=== PATIENT | male | born 1990 | race African-American/Black ===

== ENCOUNTER 2018-07-16 12:06 | Emergency (ER) | payer SELFPAY ==
[~2018-07-16] VITALS: Ht 180.3 cm; Wt 63.0 kg
[2018-07-16 12:09] VITALS: BP 133/71
[2018-07-16] MEDS ORDERED: AZITHROMYCIN 250 MG TABLET PO STA (12:21)
[2018-07-16] MEDS ORDERED: LIDOCAINE-MPF 1%, 2ML ONE (12:28)
[2018-07-16] MEDS ORDERED: AZITHROMYCIN 500 MG TABLET ONE (12:28)
[2018-07-16] MEDS ORDERED: CEFTRIAXONE 250 MG ONE (12:28)
[2018-07-16] MEDS ORDERED: CEFTRIAXONE 250 MG IM ONE (12:30)
[2018-07-16 12:54] LABS: MICROSCOPIC AUTO
[2018-07-16 12:57] LABS: CULTURE INDICATED? YES
== END 2018-07-16 13:31 | disposition home or self-care (01) ==
LOC: ED 13:15
DX: N34.2 Other urethritis (principal); F12.90 Cannabis use, unspecified, uncomplicated; Z86.19 Personal history of other infectious and parasitic diseases
CPT/HCPCS: 81001; 87086; 87491; 87591; 96372; 99283; J0696

== ENCOUNTER 2019-07-17 10:17 | Inpatient (IN) | payer MEDICAID ==
[~2019-07-17] VITALS: Ht 177.8 cm; Wt 59.4 kg
--- NOTE | 2019-07-17 10:37 | NUR ---
Assumed care of patient. C/O BOYER, cough, nasal congestion, nausea, and subjective fevers x 2 days[address] Placed on NIBP and pulse ox. Will continue to monitor.
[2019-07-17] MEDS ORDERED: ONDANSETRON 2MG/ML, 2ML ONE (11:28)
[2019-07-17] MEDS ORDERED: HYDROmorphone 1 MG/ML, 1ML VIAL ONE ×2 (11:28→13:43)
[2019-07-17] MEDS ORDERED: AMPICILLIN/SULBACTAM 3 GM in SODIUM CHLORIDE 0.9% 100 ML IV ONE (11:30)
[2019-07-17] MEDS ORDERED: SODIUM CHLORIDE FLUSH 10ML SYR IVF ONE (11:30)
[2019-07-17] MEDS ORDERED: ONDANSETRON 2MG/ML, 2ML IVPush ONE (11:30)
[2019-07-17 11:39] LABS: BASOPHILS # (AUTO) 0.01 x10^3/uL (0-0.1); BASOPHILS % (AUTO) 0 % (0-1); EOSINOPHILS # (AUTO) 0.04 x10^3/uL (0-0.4); EOSINOPHILS % (AUTO) 1 % (1-7); LYMPHOCYTES # (AUTO) 1.44 x10^3/uL (1-3.4); LYMPHOCYTES % (AUTO) 21 % (22-44); MD NO; MEAN CORPUSCULAR HEMOGLOBIN 27.8 pg (27.5-34.5); MEAN CORPUSCULAR HGB CONC 31.6 g/dL (33.2-36.2); MEAN CORPUSCULAR VOLUME 88.1 fL (81-97); MEAN PLATELET VOLUME 8.6 fL (7.4-10.4); MONOCYTES % (AUTO) 3 % (2-9); NEUTROPHILS # (AUTO) 5.26 x10^3/uL (1.8-6.8); NEUTROPHILS % (AUTO) 76 % (42-75); PLATELET COUNT 181 x10^3/uL (130-400); RED BLOOD COUNT 6.07 x10^6/uL (4.38-5.82); RED CELL DISTRIBUTION WIDTH 13.9 % (9.4-14.8)
--- NOTE | 2019-07-17 11:40 | NUR ---
Delay in care d/t patient being difficult stick.
[2019-07-17] MEDS: HYDROmorphone 1 MG/ML, 1ML INJ IVPush PRN ×2 (11:45→13:47)
[2019-07-17 11:48] LABS: ALBUMIN 4.4 g/dL (3.4-5.0); ANION GAP 8 mmol/L (5-15); CHLORIDE 107 mmol/L (98-107)
[2019-07-17 11:52] LABS: ALANINE AMINOTRANSFERASE 28 U/L (12-78); ALKALINE PHOSPHATASE 85 U/L (45-117); BILIRUBIN,TOTAL 0.7 mg/dL (0.2-1.0); CREATININE 1.09 mg/dL (0.7-1.3); TOTAL PROTEIN 9.3 g/dL (6.4-8.2)
[2019-07-17 11:58] LABS: RAPID INFLUENZA A Negative (Negative); RAPID INFLUENZA B Negative (Negative)
--- NOTE | 2019-07-17 12:08 | NUR ---
VSS. PRovided with blanket. No other needs.
--- NOTE | 2019-07-17 12:30 | NUR ---
Patient in MRI.
[2019-07-17] MEDS ORDERED: GADOTERATE 7.5 MMOL/15 ML SYR ONE (13:00)
--- NOTE | 2019-07-17 13:53 | NUR ---
VSS. Continues to have C/O BOYER. Medicated per eMAR.
--- NOTE | 2019-07-17 15:15 | NUR ---
LUNCH RN: PT RESTING IN ROOM. NO ACUTE DISTRESS NOTED. CALL LIGHT IN PLACE. WILL CONTINUE TO MONITOR WHILE PRIMARY RN IS ON BREAK.
--- NOTE | 2019-07-17 15:50 | NUR ---
REPORT GIVEN TO ETELVINA MORSE
[2019-07-17] MEDS ORDERED: ONDANSETRON 2MG/ML, 2ML IVPush PRN (16:00)
[2019-07-17] MEDS ORDERED: PROMETHAZINE 25 MG/ML, 1ML IM PRN (16:00)
[2019-07-17] MEDS ORDERED: hydrALAzine 20 MG/ML, 1ML IVPush PRN (16:00)
[2019-07-17] MEDS ORDERED: morphine SULFATE 10 MG/ML, 1ML IVPush PRN (16:00)
[2019-07-17] MEDS ORDERED: LABETALOL 5MG/ML, 20ML IVPush PRN (16:00)
[2019-07-17] MEDS ORDERED: ACETAMINOPHEN 325 MG TABLET PO PRN (16:00)
[2019-07-17] MEDS: AMPICILLIN/SULBACTAM 1,500 MG in SODIUM CHLORIDE 0.9% 50 ML IV SCH ×2 (16:09→22:32)
--- NOTE | 2019-07-17 16:30 | NUR ---
Patient resting in [place]. NAD. Ready for transfer.
[2019-07-17 16:35] LABS: HCT (SEDRATE) 48.2 % (39.2-51.8)
[2019-07-17] MEDS: POTASSIUM CHLORIDE 20 MEQ TAB.ER.PRT PO SCH (17:54)
[2019-07-17] MEDS: SODIUM CHLORIDE 0.9% 1,000 ML IV SCH (17:54)
[2019-07-17] MEDS: GUAIFENESIN 200 MG TABLET PO SCH ×2 (17:54→22:32)
[2019-07-17] MEDS: OXYcodone IR 5MG TABLET PO PRN ×2 (17:58→22:33)
[2019-07-17] MEDS: ENOXAPARIN 40 MG/0.4 ML SQ SCH (17:59)
[2019-07-17 18:58] VITALS: BP 106/70
[2019-07-17 20:34] LABS: AMPHETAMINE SCREEN, URINE Negative (Negative); BARBITURATE SCREEN, URINE Negative (Negative); BENZODIAZEPINE SCREEN, URINE Negative (Negative); CANNABINOID SCREEN, URINE Positive (Negative); COCAINE SCREEN, URINE Negative (Negative)
[2019-07-17 20:35] LABS: METHADONE SCREEN, URINE Negative (Negative); OPIATE SCREEN, URINE Positive (Negative)
[2019-07-18 02:36] VITALS: BP 115/66
[2019-07-18] MEDS: AMPICILLIN/SULBACTAM 1,500 MG in SODIUM CHLORIDE 0.9% 50 ML IV SCH ×4 (04:15→20:43)
[2019-07-18] MEDS: SODIUM CHLORIDE 0.9% 1,000 ML IV SCH ×2 (04:16→17:45)
[2019-07-18] MEDS: GUAIFENESIN 200 MG TABLET PO SCH ×4 (04:19→20:42)
[2019-07-18 05:53] LABS: BASOPHILS # (AUTO) 0.02 x10^3/uL (0-0.1); BASOPHILS % (AUTO) 0 % (0-1); EOSINOPHILS % (AUTO) 0 % (1-7); LYMPHOCYTES # (AUTO) 0.94 x10^3/uL (1-3.4); LYMPHOCYTES % (AUTO) 13 % (22-44); MD NO; MEAN CORPUSCULAR VOLUME 87.6 fL (81-97); MEAN PLATELET VOLUME 8.1 fL (7.4-10.4); MONOCYTES # (AUTO) 0.09 x10^3/uL (0.2-0.8); MONOCYTES % (AUTO) 1 % (2-9); NEUTROPHILS # (AUTO) 6.13 x10^3/uL (1.8-6.8); NEUTROPHILS % (AUTO) 85 % (42-75); PLATELET COUNT 203 x10^3/uL (130-400); RED BLOOD COUNT 5.07 x10^6/uL (4.38-5.82); RED CELL DISTRIBUTION WIDTH 13.4 % (9.4-14.8)
[2019-07-18 06:08] LABS: ALBUMIN 3.3 g/dL (3.4-5.0); ANION GAP 5 mmol/L (5-15); CALCIUM 9.4 mg/dL (8.5-10.1); CHLORIDE 107 mmol/L (98-107)
[2019-07-18 06:11] LABS: ALANINE AMINOTRANSFERASE 21 U/L (12-78); ALKALINE PHOSPHATASE 68 U/L (45-117); BILIRUBIN,TOTAL 0.6 mg/dL (0.2-1.0); CREATININE 1.01 mg/dL (0.7-1.3); TOTAL PROTEIN 7.7 g/dL (6.4-8.2)
[2019-07-18 08:10] VITALS: BP 99/66
[2019-07-18] MEDS: POTASSIUM CHLORIDE 20 MEQ TAB.ER.PRT PO SCH ×2 (08:26→16:30)
[2019-07-18] MEDS: OXYcodone IR 5MG TABLET PO PRN ×3 (08:37→16:31)
[2019-07-18 13:07] VITALS: BP 112/73
[2019-07-18] MEDS: ENOXAPARIN 40 MG/0.4 ML SQ SCH (15:46)
[2019-07-18 19:09] VITALS: BP 100/61
[2019-07-19] MEDS: OXYcodone IR 5MG TABLET PO PRN ×2 (00:25→11:01)
[2019-07-19 01:16] VITALS: BP 102/70
[2019-07-19] MEDS: AMPICILLIN/SULBACTAM 1,500 MG in SODIUM CHLORIDE 0.9% 50 ML IV SCH ×3 (04:25→15:35)
[2019-07-19] MEDS: GUAIFENESIN 200 MG TABLET PO SCH ×3 (05:29→15:35)
[2019-07-19] MEDS: SODIUM CHLORIDE 0.9% 1,000 ML IV SCH (07:33)
[2019-07-19] MEDS: POTASSIUM CHLORIDE 20 MEQ TAB.ER.PRT PO SCH ×2 (07:33→16:23)
[2019-07-19 07:43] VITALS: BP 128/72
[2019-07-19 12:54] VITALS: BP 112/73
[2019-07-19] MEDS ORDERED: AMOX1TAB64 PO (13:00)
[2019-07-19] MEDS ORDERED: GUAI600T31 PO (13:00)
[2019-07-19] MEDS: ENOXAPARIN 40 MG/0.4 ML SQ SCH (15:35)
== END 2019-07-19 16:58 | disposition home or self-care (01) | DRG 153 ==
LOC: ED 14:19 → EDIP 15:35 → 3N 16:17 → DCLOUNGE 07-19 16:51
PROVIDERS: ADMIT Internal Medicine; ATTEND Internal Medicine
DX: J01.90 Acute sinusitis, unspecified (principal); E87.2 Acidosis; F19.10 Other psychoactive substance abuse, uncomplicated; E87.6 Hypokalemia; Z83.3 Family history of diabetes mellitus
CPT/HCPCS: 36415; 70543; 70553; 71045; 80053; 80307; 83605; 85025; 85651; 86140; 87040; 87070; 87205; 87400; 93005; 96365; 96375; 99285; A9575; J0295; J1170; J1650; J2270; J2405; J7030; J7512; G0378

== ENCOUNTER 2019-08-23 19:13 | Emergency (ER) | payer MEDICAID ==
[~2019-08-23] VITALS: Ht 180.3 cm; Wt 56.7 kg
[~2019-08-23 19:13] MED LIST: AMOX1TAB64 PO; GUAI600T31 PO
[2019-08-23 19:19] VITALS: BP 117/67
[2019-08-23] MEDS ORDERED: LIDOCAINE 1%-EPI 1:100K, 20ML SQ ONE (20:00)
== END 2019-08-23 21:48 | disposition home or self-care (01) ==
LOC: ED 21:42
DX: L02.412 Cutaneous abscess of left axilla (principal); S40.262A Insect bite (nonvenomous) of left shoulder, initial encounter; F17.210 Nicotine dependence, cigarettes, uncomplicated; L73.2 Hidradenitis suppurativa; W57.XXXA Bitten or stung by nonvenomous insect and other nonvenomous arthropods, initial encounter; Y93.89 Activity, other specified; Y92.89 Other specified places as the place of occurrence of the external cause; Y99.8 Other external cause status
CPT/HCPCS: 10061; 99284

== ENCOUNTER 2019-08-25 16:10 | Emergency (ER) | payer MEDICAID ==
[~2019-08-25] VITALS: Ht 177.8 cm; Wt 60.0 kg
[2019-08-25 16:32] VITALS: BP 117/72
[2019-08-25] MEDS ORDERED: HYDROcodone/APAP 5/325 TABLET PO STA (17:26)
[2019-08-25] MEDS ORDERED: HYDROcodone/APAP 5/325 TABLET ONE (17:40)
[2019-08-25] MEDS ORDERED: SULFAMETH./TRIMETHOPRIM DS 800MG/160MG TABLET ONE (17:40)
[2019-08-25] MEDS ORDERED: CEPHALEXIN 500 MG CAPSULE ONE (17:41)
[2019-08-25] MEDS ORDERED: SULFAMETH./TRIMETHOPRIM DS 800MG/160MG TABLET PO ONE (18:00)
[2019-08-25] MEDS ORDERED: CEPHALEXIN 500 MG CAPSULE PO ONE (18:00)
--- NOTE | 2019-08-25 18:18 | NUR ---
Patient/Caregiver given discharge instructions and they have confirmed that they understand the instructions. Patient ambulatory with steady gait. PT LEFT WITH ALL PERSONAL BELONGINGS.
== END 2019-08-25 18:20 | disposition home or self-care (01) ==
LOC: ED 18:00
DX: Z48.01 Encounter for change or removal of surgical wound dressing (principal)
CPT/HCPCS: 99284